=== PATIENT | male | born 1945 | race Caucasian/White ===

== ENCOUNTER 2020-05-16 10:22 | Outpatient (RCR) | payer MEDICARE, SELFPAY | END 2020-05-16 23:59 | LOC: IMMUN 10:22 | PROVIDERS: PCP Family Medicine Geriatric Medicine; Visit Provider Family Medicine | DX: Z23 Encounter for immunization (principal) | CPT/HCPCS: 0011A; 0012A ==

== ENCOUNTER 2021-01-03 09:32 | Emergency (ER) | payer MEDICARE, SELFPAY ==
[2021-01-03 09:33] VITALS: BP 166/96; PULSE 101; RESP 19; TEMP 36.6; O2SAT 97; BMI 22.4
--- NOTE | 2021-01-03 10:21 | EX.ED.DYSGE1 ---
HPI History of Present Illness Chief Complaint: Complaint Narrative Narrative: Patient presents with suprapubic pain and decreased urination since last night. He has quite a bit of pain. No prior prostate problems in fact he tells me he has no medical problems and takes no medications. No back pain or tearing sensation. No recent fever chills no nausea vomiting. [facility] Medical History (Updated 01/03/21 @ 10:[address] Azar Villanueva MD) Asthma Allergy/AdvReac Type Severity Reaction Status Date / Time No Known Allergies Allergy Verified 01/03/21 09:35 Social History Smoking Status: Never smoker ROS ROS ED ROS Narrative Past medical history: None Medications: Reviewed Social history: Noncontributory Review of systems: All systems negative except as indicated General: No fever Cardiovascular: No chest pain Respiratory: No shortness of breath or cough Gastrointestinal: Suprapubic pain as in HPI Genitourinary: Urinary retention as in HPI Musculoskeletal: Denies myalgias no difficulty with ambulation Skin: No rash Neurological: No memory loss, confusion or any focal weakness Hematologic: No easy bleeding or easy bruising EXAM Physical Exam Narrative Exam Narrative: Physical exam General: Patient appears quite uncomfortable Head: Normocephalic, Atraumatic Eyes: Conjunctiva not pale Cardiovascular: Regular rate, Regular rhythm Respiratory: No distress, CTA bilaterally Abdomen: Soft, there is a suprapubic mass. : Normal external genitalia Back: Nontender, Normal Inspection. Negative for: CVA tenderness Extremities: Nontender, No edema Skin: Normal color, No rash Neurological: Alert, Normal Strength, Normal Sensation Const Vital Signs: 01/03/21 09:33 Temperature 98 F Temperature Source Temporal Pulse Rate 101 H Respiratory Rate 19 H Blood Pressure 166/96 H Blood Pressure Mean 119 Pulse Ox 97 Oxygen Delivery Method Room Air MDM MDM MDM Narrative Medical decision making narrative: A bedside ultrasound shows an enlarged bladder, a Bland catheter was placed per RN, almost a liter of urine was drained. Patient significantly improved. I will discharge with Bland catheter and follow-up. Discharge Plan Triage Chief Complaint: Complaint Other Complaint: Constipation ED Provider: Azar Villanueva Dx/Rx/DC Orders Clinical Impression: Acute urinary retention Instructions: ED Bland Catheter, Care Primary Care Provider: Alex Abad Chi Referrals: Luz Maria Sarah MD [STAFF PHYSICIAN] - 2 Days Alex Abad Chi, MD [Primary Care Provider] - Disposition Disposition: Home, Self Care
[2021-01-03 10:51] LABS: Bacteria 0 SEEN /hpf (None Seen); Mucous, Urine 0 SEEN /hpf (<or=2+); Squamous Epithelial Cells - UA 0 SEEN /hpf (0-5)
[2021-01-03 10:53] LABS: Color, Urine Yellow (Yellow); Glucose, Dipstick Normal (Normal); Ketone-Dipstick Negative (Negative); Leukocyte Esterase-Dipstick Negative /ul (Negative); Nitrite-Dipstick Negative (Negative); Occult Blood-Urine 250 /ul (Negative); Protein-Dipstick Negative (Negative); Urine Bilirubin Dipstick Negative (Negative); Urine Clarity Clear (Clear); Urine Urobilinogen Normal (Normal); Urine pH 6.5 (5.0 - 8.0)
[2021-01-03 11:10] LABS: Red Blood Cells-Urine 5-10 SEEN /hpf (0-5); White Blood Cells 0-5 SEEN /hpf (0-5)
[2021-01-03 11:27] VITALS: RESP 16
== END 2021-01-03 11:27 | disposition home or self-care (01) ==
LOC: ED 10:52
PROVIDERS: Emergency Provider Emergency Medicine
DX: R33.9 Retention of urine, unspecified (principal); N32.89 Other specified disorders of bladder; K59.00 Constipation, unspecified; J45.909 Unspecified asthma, uncomplicated
CPT/HCPCS: 51702; 81001; 99283

== ENCOUNTER 2021-01-27 10:45 | Day surgery (SDC) | payer MEDICARE, SELFPAY ==
[2021-01-27] VITALS (12 sets, daily range): BP systolic 112–152; BP diastolic 53–113; PULSE 55–88; RESP 16–18; TEMP 36.3–37; O2SAT 92–97; BMI 21.9
--- NOTE | 2021-01-27 | PROS_PTH ---
PATIENT: RAE ALEJANDRA [place] [facility] [id number] AGE/SX: 75/M ROOM: RE01/27/[address]: Dr. Phil Humphries MD : 1945 BED: DIS: 01/28/2021 SPEC #: [id number] RECD: 01/27/21 15:57 STATUS: CITLALLI LINK #: [id number] [place]: 01/27/21 00:[address]: Phil Humphries DEPT: SURGICAL PATHOLOGY RECD BY: Erick Pennington ENTERED: 01/30/21 08:56 SP TYPE: TURP OTHR DR: No Primary Care Phys Tissues: Prostate, NOS Procedures: Surgery Specimen Level IV HEADER OPERATION: Cysto, TUR prostate, Olympus PRE-OP DIAGNOSIS: BPH TISSUE SUBMITTED: Prostate chips MICROSCOPIC DIAGNOSIS Prostate, transurethral resection: Benign nodular hyperplasia, glandular and stromal types. Chronic inflammation with focal acute inflammation. Urothelium with mild chronic and focal acute inflammation. AM:moises 01/31/2021 MICROSCOPIC DESCRIPTION Slides are reviewed. GROSS DESCRIPTION Received is one container labeled with the patient's name and designated prostate chips. The specimen consists of multiple irregular fragments of pink-granados, rubbery, soft tissue that in aggregate weigh 90.3 gm and measure in aggregate 6 x 6 x 2.5 cm. A few fragments of stones are also noted. A few blood clots are also present. Lens Assistant tissue is submitted in ten cassettes. / SJ:moises 01/30/21 TC:2 CPT: 65271
--- NOTE | 2021-01-27 11:21 | EKG12_ITS ---
Test Reason : PRE OP Blood Pressure : / mmHG Vent. Rate : 077 BPM Atrial Rate : 077 BPM P-R Int : 192 ms QRS Dur : 084 ms QT Int : 380 ms P-R-T Axes : 013 -06 014 degrees QTc Int : 430 ms Normal sinus rhythm Poor R wave progression Confirmed by MOE DOUGHERTY, DORY ([id number]), business editor MISBAH LOW ([id number]) on 02/01/2021 10:02:39 AM Referred By: Phil Humphries Confirmed By:DORY ROSA MD
[2021-01-27] MEDS: Lactated Ringers 1,000 ML 15 ML IV (11:35)
--- NOTE | 2021-01-27 13:29 | PCM.HP.STD ---
HPI - General HPI Narrative RAE ALEJANDRA, is a 75 M who presents for a TURP h/o retention of urine PFSH Medical History (Updated 01/20/21 @ 12:03 by Alexus Daily) Asthma Bland catheter in place History of echocardiogram Marijuana use Non-smoker Wears dentures Wears glasses Home Medications NK 01/20/21 [History Last Taken Unknown] Allergy/AdvReac Type Severity Reaction Status Date / Time No Known Allergies Allergy Verified 01/27/21 11:43 Surgical History (Updated 01/20/21 @ 12:03 by Alexus Daily) Hx of colonoscopy Social History Smoking Status: Never smoker Vital Signs Vital Signs Vital Signs: 01/27/21 11:35 Temperature 97.4 F L Temperature Source Temporal Pulse Rate 84 Respiratory Rate 18 Respiratory Pattern Normal Blood Pressure 133/81 H Blood Pressure Mean 98 Blood Pressure Source Monitor Blood Pressure Position Sitting Blood Pressure Location Left Arm Pulse Ox 97 Oxygen Delivery Method Room Air Weight Weight: 75.3 kg Body Mass Index (BMI) 21.9
[2021-01-27] MEDS: Cefazolin 2 GM in 0.9% Normal Saline 100 ML IV (13:30)
--- NOTE | 2021-01-27 13:30 | PCM.DC ---
Discharge Instructions Diet Discharge Diet: No restrictions Activity Discharge Activity: Return to Normal Activity and May Not Drive (while taking narcotic pain medications.) Dressing / Incision Call your doctor if you observe: Fever of 101 or Higher Follow Up Care Please Follow Up With: Phil Humphries MD When: Call [phone] for an appointment Test Results: Test results from this visit will be discussed in further detail at your follow-up appointment, if applicable. Discharge Plan Admission Primary Reason for Your Visit: adair Attending Provider: Phil Humphries Primary Care Provider: Care Physician,No Primary Instructions Patient Instructions: TURP Home Recovery Discharge Orders/Prescriptions Prescriptions: No Action NK RF: 0 Referrals / Follow Up: Phil Humphries MD [STAFF PHYSICIAN] - Care Physician,No Primary [Primary Care Provider] - Disposition Disposition (needs filled in before D/C Order can be placed): Home, Self Care
[2021-01-27] MEDS: Lactated Ringers 1,000 ML 100 ML IV ×2 (14:15→22:54)
--- NOTE | 2021-01-27 15:03 | PCM.OPRPT ---
Report of Operation Date of Procedure: 01/27/21 Pre-Operative Diagnosis: BPH with urinary retention Post-Operative Diagnosis: The same Surgery/Procedure Performed:: Transurethral resection of prostate Description of Surgical Findings:: In the preoperative setting I discussed with the patient how the surgery would be done with expect afterwards. We discussed how a prostate resection is done and we discussed the risk of the surgery including, bleeding, infection, retrograde ejaculation, changes with ejaculation or intercourse,. We discussed the possibility that the resection of the prostate may not alleviate his urinary symptoms. We discussed the small risk of developing scar tissue along the urethral channel and strictures. We also discussed the chance of the prostate could grow back and he may need further surgery or treatment in the future for prostate problems. Patient was taken back to the operating room, timeout procedure was performed, he was identified and marked and placed on the operating room table. He underwent general anesthesia. He was placed in dorsolithotomy position. Penis and testicles were prepped and draped in usual sterile fashion. Went into the bladder using the visual obturator with a resectoscope. Once inside the bladder identified the right and left ureteral orifice. I then identified the prostate and the anatomy of the prostate. I marked out the area of the sphincter and the verumontanum was identified. I then proceeded with the prostate resection first resected the median lobe. And then resected the right lobe of the prostate. Then to resect the left lobe of the prostate. I then resected the apical tissue of the prostate. Made sure that there was no injury to the sphincter or the verumontanum was still intact. At the end of the resection all the chips were Ellik out of the bladder. I then identified the left and right ureteral orifice and these were confirmed to be in good position and effluxing and not injured. The resectoscope was removed, a 22 Kinyarwanda catheter was placed into the bladder on continuous irrigation. And the urine was fairly light pink color and draining normally. He was taken back to the PACU in good condition. Surgeon: Phil Humphries Type of Anesthesia: General Drains: 22fr crouch Admit VTE Documentation VTE Present on Admission: No VTE Mechan Device Prophylaxis: SCD's VTE Pharm Prophylaxis ordered?: No
--- NOTE | 2021-01-27 18:24 | PCS.PANDOC ---
PANDEMIC DOCUMENTATION INITIATED: Date: 10/31/2020 Time: 190
[2021-01-27] MEDS: Ciprofloxacin 500 MG Tablet PO (22:45)
[2021-01-28 02:24] VITALS: BMI 21.9
[2021-01-28 04:24] VITALS: BP 128/61; PULSE 75; RESP 16; TEMP 36.7; O2SAT 95
[2021-01-28 06:24] VITALS: BMI 21.9
[2021-01-28 09:00] VITALS: PULSE 70; RESP 20; O2SAT 95
[2021-01-28 10:24] VITALS: BP 129/77; PULSE 91; RESP 20; TEMP 36.3; O2SAT 92; BMI 21.9
[2021-01-28] MEDS: Ciprofloxacin 500 MG Tablet PO (11:53)
[2021-01-28 14:00] VITALS: BP 123/78; PULSE 88; RESP 20; TEMP 36.4; O2SAT 93
== END 2021-01-28 14:10 | disposition home or self-care (01) ==
LOC: SDC 10:50 → AC 11:20 → MS3 01-30 14:11
PROVIDERS: Referring Provider Urology; Visit Provider Urology
PROC: (CPT 52601; principal; 2021-01-27 13:00)
DX: N41.0 Acute prostatitis (principal); N41.1 Chronic prostatitis; N40.1 Benign prostatic hyperplasia with lower urinary tract symptoms; R33.8 Other retention of urine; R35.0 Frequency of micturition; J45.909 Unspecified asthma, uncomplicated
CPT/HCPCS: 52601; 88305; 93005; J7120; J2405

== ENCOUNTER 2021-06-08 15:48 | Outpatient (CLI) | payer MEDICARE, SELFPAY | END 2021-06-08 23:59 | disposition home or self-care (01) | PROVIDERS: Referring Provider Urology; Visit Provider Urology | DX: R31.0 Gross hematuria (principal); Z12.5 Encounter for screening for malignant neoplasm of prostate | CPT/HCPCS: 36415; 84153; 87077; 87086; 87088; 87186; G0103 ==

== ENCOUNTER → 2023-08-09 | Outpatient (CLI) | payer MEDICARE, SELFPAY ==
[2023-08-09 15:22] LABS: Hematocrit 50.9 % (40-54)
[2023-08-09 16:50] LABS: Cholesterol 180 mg/dL (200); Creatinine, Serum 1.05 mg/dL (0.70-1.30); EST Glomerular Filtration Rate 73 mL/min (>60); Est Glom Filt Rate - Afr Amer 88 mL/min (>60); Glucose 99 mg/dL (74-106); High Density Lipoprotein 40 mg/dL; PSA,Total - Annual Screen 7.25 ng/mL (0.00-4.00)
== END | disposition home or self-care (01) ==
LOC: MTLAB 12:34
PROVIDERS: PCP Family Medicine; Referring Provider Family Medicine; Visit Provider Family Medicine
DX: Z13.220 Encounter for screening for lipoid disorders (principal); K63.5 Polyp of colon; Z12.5 Encounter for screening for malignant neoplasm of prostate; Z83.3 Family history of diabetes mellitus
CPT/HCPCS: 36415; 82465; 82565; 82947; 83718; 84153; 85014; 85018; G0103

== ENCOUNTER 2025-02-23 07:40 | Outpatient (CLI) | payer MEDICARE, SELFPAY ==
[2025-02-23 10:59] LABS: Hematocrit 50.5 % (40-54); Hemoglobin 16.3 g/dL (13.0-16.5); Immature Granulocytes Count 0.030 X10^3/uL (0.0-0.0); Mean Corp Hgb Conc 32.3 g/dL (32-36); Mean Corpuscular Volume 88.1 fL (80-94); Mean Platelet Vol. 10.4 fl (6.2-12.0); NRBC Flagged by Analyzer 0 % (0-5); Platelet Count 200 K/mm3 (150-450); RBC Distribution Width CV 14.2 % (11.6-14.6); RBC Distribution Width SD 45.8 fl (35.1-43.9); Red Blood Count 5.73 M/mm3 (4.6-6.2); White Blood Count 10.7 K/mm3 (4.4-11.0)
[2025-02-23 11:30] LABS: AST(SGOT) 19 U/L (<=37); Alanine Aminotransfer ALT/SGPT 12 U/L (<=46); Albumin, Serum 4.1 g/dL (3.4-4.8); Alkaline Phosphatase 82 U/L (40-129); Anion Gap 10 (5-15); BUN 17 mg/dL (4-19); BUN/Creat Ratio 16.7 RATIO (10-20); Calcium,Total 9.1 mg/dL (7.6-11.0); Carbon Dioxide 28.3 mmol/L (21.0-32.0); Chloride 102 mmol/L (98-108); Cholesterol 190 mg/dL (<=200); Globulin 2.8 g/dL (2.2-4.2); Glucose 106 mg/dL (70-99); Low Density Lipoprotein Calc. 127 mg/dL; PSA,Total- Diagnostic 6.33 ng/mL (0.00-4.00); Potassium 4.2 mmol/L (3.3-5.1); Triglycerides 139 mg/dL; Very Low Density Lipoprotein 28 mg/dL (5-40); cholesterol:hdl ratio screen 5.00
== END 2025-02-23 23:59 | disposition home or self-care (01) ==
LOC: MTLAB 07:44
PROVIDERS: PCP Family Medicine; Referring Provider Family Medicine; Visit Provider Family Medicine
DX: Z13.220 Encounter for screening for lipoid disorders (principal); K63.5 Polyp of colon; R97.20 Elevated prostate specific antigen [PSA]
CPT/HCPCS: 36415; 80053; 80061; 84153; 85025